=== PATIENT | female | born 1965 | race African-American/Black ===

== ENCOUNTER 2016-11-23 17:08 | Inpatient (IN) | payer OTHER ==
[2016-11-23 19:24] LABS: Hematocrit 37 % (35-47); Hemoglobin 11.9 g/dl (12.0-16.0); Mean Corpuscular HGB Conc 32 g/dl (31-36); Mean Corpuscular Hemoglobin 29 pg (27-31); Mean Corpuscular Volume 90 fL (80-97); Mean Platelet Volume 10 um3 (7.4-10.4); Red Cell Distribution Width 13 % (10.5-15); White Blood Count 13.9 10^3/ul (3.5-10.8)
[2016-11-23 19:37] LABS: Albumin 4.1 g/dL (3.2-5.2); BUN/Creatinine Ratio 15.5 (8-20); C Reactive Protein 135.75 mg/L (< 5.00); EGFR African American 43.6 (>60); EGFR Non-African American 33.9 (>60); Globulin 4.2 g/dL (2-4); Potassium 4.8 mmol/L (3.5-5.0); Total Protein 8.3 g/dL (6.4-8.9)
[2016-11-23] MEDS ORDERED: Clindamycin 600 MG IVPREMIX(* 600 MG/50 ML SDV IV ONE (22:31)
[2016-11-23 23:11] LABS: Erythrocyte Sed Rate 105 mm/Hr (0-30)
--- NOTE | 2016-11-23 23:31 | RAD ---
Indication: RIGHT lateral ankle pain following preceding recent injury. Fracture in 2010 with internal fixation hardware. Comparison: No relevant prior exams available on the [facility] for comparison. Technique: AP, mortise, and lateral views RIGHT ankle. Report: Severe soft tissue swelling most marked over the lateral malleolus and lateral hind through mid foot. No subcutaneous emphysema evident. Congruent ankle mortise and normal articular alignment throughout. Negative for component fracture or loosening of the lateral cortical plate and multiple fixation screws or lag screws at the medial malleolus. Negative for fracture, osteochondral lesion, periosteal reaction, osteolysis, or osteosclerosis. Suggestion of talocrural joint effusion. IMPRESSION: Negative for fracture, osteochondral lesion, or other acute bony abnormality. The constellation of findings is concerning for cellulitis and potential early septic arthritis. Correlate with clinical assessment.
--- NOTE | 2016-11-23 23:40 | ED ---
Lower Extremity - HPI Summary HPI Summary: Patient presents with four days of worsening right ankle pain, swelling and redness for unknown reasons. She has a history of left ankle ORIF for a bimalleolar fracture in 2010 in [place]. She did not roll the ankle or suffer any known bites or scratches. She denies fever, or chills, but does notice redness progressing up her coffey. She is able to bear weight, but at times it's painful but resolves. - History of Current Complaint Chief Complaint: EDExtremityLower Stated Complaint: RT ANKLE SWOLLEN Time Seen by Provider: 11/23/16 20:49 Hx Obtained From: Patient Mechanism Of Injury: Unknown Onset of Pain: Days - 4 Onset/Duration: Worse Since - 4 days ago Severity Initially: Mild Severity Currently: Moderate Pain Intensity: 5 Timing: Constant Location: Is Discrete @ - right ankle Character Of Pain: Dull, Aching, Stiffness Associated Signs And Symptoms: Positive: Swelling, Redness Aggravating Factor(s): Standing Alleviating Factor(s): Rest Able to Bear Weight: Yes - with intermittent pain - Allergies/Home Medications Allergies/Adverse Reactions: Allergies Allergy/AdvReac Type Severity Reaction Status Date / Time No Known Allergies Allergy Verified 11/23/16 20:10 Home Medications: Home Medications Atenolol TAB* [Tenormin TAB* 50 MG] 50 mg PO DAILY 11/23/16 [History Confirmed 11/23/16] Calcium 250 mg PO DAILY 11/23/16 [History Confirmed 11/23/16] Darunavir(NF) [Prezista(NF)] 1 tab PO DAILY 11/23/16 [History Confirmed 11/23/16 ] Genovoya 1 tab PO DAILY 11/23/16 [History Confirmed 11/23/16] Hydrochlorothiazide TAB* [Hydrodiuril TAB*] 1 tab PO DAILY 11/23/16 [History Confirmed 11/23/16] Levothyroxine TAB* [Synthroid 100 MCG TAB*] 1 tab PO DAILY 11/23/16 [History Confirmed 11/23/16] Lisinopril TAB* 10 mg PO DAILY 11/23/16 [History Confirmed 11/23/16] Lisinopril TAB* [Prinivil TAB 10 MG*] 1 tab PO DAILY 11/23/16 [History Confirmed 11/23/16] Omeprazole CAP* [Prilosec CAP* 20 MG] 20 mg PO DAILY 11/23/16 [History Confirmed 11/23/16] Pravastatin (NF) [Pravachol (NF)] 1 tab PO DAILY 11/23/16 [History Confirmed ] Vitamin D TAB* 2,000 i.u. PO DAILY 11/23/16 [History Confirmed 11/23/16] PMH/Surg Hx/FS Hx/Imm Hx Musculoskeletal History: Reports: Hx of Fracture(s) - right bimalleolar fracture with ORIF - Cancer History Hx Chemotherapy: No Hx Radiation Therapy: No Infectious Disease History: Yes Infectious Disease History: Denies: Traveled Outside the [place] in Last 30 Days - Family History Known Family History: Positive: None - Social History Occupation: Employed Full-time Lives: With Family Alcohol Use: None Substance Use Type: Reports: None Smoking Status (MU): Former Smoker Review of Systems Negative: Fever, Chills Positive: Myalgia, Decreased ROM, Edema Positive: Other - erythema Negative: Paresthesia, Numbness Psychological: Normal All Other Systems Reviewed And Are Negative: Yes Physical Exam Triage Information Reviewed: Yes Vital Signs On Initial Exam: Initial Vitals Temp Pulse Resp BP Pulse Ox 98.1 F 94 17 140/106 95 11/23/16 17:21 11/23/16 17:21 11/23/16 17:21 11/23/16 17:21 11/23/16 17:21 Vital Signs Reviewed: Yes Appearance: Positive: Well-Appearing, No Pain Distress, Obese Skin: Positive: Warm, Skin Color Reflects Adequate Perfusion, Dry, Soft, Erythema @ - right ankle erythema on anterior coffey to mid-coffey Head/Face: Positive: Normal Head/Face Inspection Eyes: Positive: EOMI, PHYLLIS, Conjunctiva Clear ENT: Positive: Hearing grossly normal Respiratory/Lung Sounds: Positive: Breath Sounds Present Cardiovascular: Positive: RRR Musculoskeletal: Positive: Limited @ - movement in all planes limited due to swelling and pain, Pain @ - TTP med/lat/ant ankle, Edema Right Neurological: Positive: Sensory/Motor Intact, Alert, Oriented to Person Place, Time, NV Bundle Intact Distally, Abnormal Gait Psychiatric: Positive: Affect/Mood Appropriate AVPU Assessment: Alert Diagnostics - Vital Signs Vital Signs Temp Pulse Resp BP Pulse Ox 11/23/16 20:10 98.5 F 84 16 123/66 98 11/23/16 17:21 98.1 F 94 17 140/106 95 - Laboratory Lab Results: Lab Results 11/23/16 11/23/16 Range/Units 18:01 18:01 WBC 13.9 H (3.5-10.8) 10^3/ul RBC 4.10 (4.0-5.4) 10^6/ul Hgb 11.9 L (12.0-16.0) g/dl Hct 37 (35-47) % MCV 90 (80-97) fL MCH 29 (27-31) pg MCHC 32 (31-36) g/dl RDW 13 (10.5-15) % Plt Count 324 (150-450) 10^3/ul MPV 10 (7.4-10.4) um3 Neut % (Auto) 67.4 (38-83) % Lymph % (Auto) 22.3 L (25-47) % Saunders % (Auto) 8.1 (1-9) % Eos % (Auto) 1.6 (0-6) % Baso % (Auto) 0.6 (0-2) % Absolute Neuts (auto) 9.4 H (1.5-7.7) 10^3/ul Absolute Lymphs (auto) 3.1 (1.0-4.8) 10^3/ul Absolute Monos (auto) 1.1 H (0-0.8) 10^3/ul Absolute Eos (auto) 0.2 (0-0.6) 10^3/ul Absolute Basos (auto) 0.1 (0-0.2) 10^3/ul Absolute Nucleated RBC 0.01 10^3/ul Nucleated RBC % 0 ESR 105 H (0-30) mm/Hr Sodium 137 (133-145) mmol/L Potassium 4.8 (3.5-5.0) mmol/L Chloride 100 L (101-111) mmol/L Carbon Dioxide 28 (22-32) mmol/L Anion Gap 9 (2-11) mmol/L BUN 25 H (6-24) mg/dL Creatinine 1.61 H (0.51-0.95) mg/dL Est GFR ( Amer) 43.6 (>60) Est GFR (Non-Af Amer) 33.9 (>60) BUN/Creatinine Ratio 15.5 (8-20) Glucose 121 H (70-100) mg/dL Calcium 10.0 (8.6-10.3) mg/dL Total Bilirubin 1.00 (0.2-1.0) mg/dL AST 21 (13-39) U/L ALT 27 (7-52) U/L Alkaline Phosphatase 71 (34-104) U/L C-Reactive Protein 135.75 H (< 5.00) mg/L Total Protein 8.3 (6.4-8.9) g/dL Albumin 4.1 (3.2-5.2) g/dL Globulin 4.2 H (2-4) g/dL Albumin/Globulin Ratio 1.0 (1-3) Result Diagrams: 11/23/16 18:01 11/23/16 18:01 Lab Statement: Any lab studies that have been ordered have been reviewed, and results considered in the medical decision making process. - Radiology No standard instances Xray Interpretation: No Acute Changes Radiology Interpretation Completed By: Radiologist - Ultrasound No standard instances Ultrasound Interpretation: No Acute Changes Ultrasound Interpretation Completed By: Radiologist Lower Extremity Course/Dx - Course Course Of Treatment: Patient's inflammatory markers are quite elevated, therefore she will be admitted for IV antibiotics and orthopedic consultation in the AM. - Diagnoses Differential Diagnosis/HQI/PQRI: Positive: Arthritis, Bursitis, Cellulitis, Contusion, Dislocation, Fracture (Closed), Infection, Septic Arthritis, Sprain, Strain Provider Diagnoses: Cellulitis of right ankle - Physician Notifications Discussed Care Of Patient With: Dr. Goodrich, ortho surgery; Dr. Pittman, hospital medicine Instructed by Provider To: Admit As Inpatient Discharge - Discharge Plan Condition: Stable Disposition: ADMITTED TO [facility]
--- NOTE | 2016-11-24 06:02 | HP ---
CC: Dr. Freire * HISTORY AND PHYSICAL: DATE OF ADMISSION: 11/23/16 CHIEF COMPLAINT: Right foot and ankle swelling. HISTORY OF PRESENT ILLNESS: The patient is a 51-year-old woman who states she woke up Monday and said her ankle was swollen and red. She had broken it in 2010 and thought it might be related to that. At one point, she thought it might just be a pinch nerve. She kept it elevated and iced it to see if it would get better, but it did not. She denied any fevers or chills. It is not very painful. She is able to walk on it. Because it did not get better she came to the ER for further evaluation. In the ER, the patient was evaluated and her ankle was red and swollen. It was tender to the touch and she had a sed rate of over 100 as well as a CRP a little over 100. She is being admitted for cellulitis and possible septic arthritis. PAST MEDICAL HISTORY: Significant for hypertension, hypothyroidism, hyperlipidemia, GERD, and HIV. CURRENT MEDICATIONS: Are as follows: 1. Lisinopril 10 mg daily. 2. Hydrochlorothiazide 25 mg daily. 3. Synthroid 100 mcg daily. 4. Atenolol 50 mg daily. 5. Omeprazole 20 mg daily. 6. Pravastatin 20 mg daily. 7. Calcium 250 mg daily. 8. Genvoya 1 tablet daily. 9. Prezista 1 tablet daily. ALLERGIES: She has no known drug allergies. FAMILY HISTORY: She is adopted. SOCIAL HISTORY: Quit tobacco 29 years ago. Rare alcohol. No recreational drug use. She is on disability. She is . She has 3 children. Her son Bruno Sena is her healthcare proxy. REVIEW OF SYSTEMS: A 14-point review of systems is completed with the patient. All pertinent positives and negatives are in the history of present illness, otherwise it is negative. PHYSICAL EXAMINATION GENERAL: A pleasant woman lying in bed, in no acute distress. VITAL SIGNS: Blood pressure 101/56, pulse ox 93%, heart rate 78 beats per minute, respiratory rate 16 breaths per minute, temperature 98.5 degrees. HEENT: Normocephalic and atraumatic. Pupils are equal, round and reactive to light. Moist mucous membranes. NECK: Supple. No JVD, bruits, palpable thyroid or lymphadenopathy. CHEST: Clear to auscultation and percussion bilaterally. CARDIOVASCULAR: S1, S2 appreciated. Regular rate and rhythm. ABDOMEN: Positive bowel sounds in all 4 quadrants. Soft, nontender, and nondistended. EXTREMITIES: No cyanosis or clubbing. Her right ankle is erythematous, warm, and tender to the touch on the medial malleolus. NEUROLOGIC: She is alert and oriented x3. Moves all extremities. SKIN: No rashes or abnormalities except noted on her right ankle. LABORATORY DATA: White count 13.9, hemoglobin 11.9, hematocrit 37, platelets 324. Sodium is 137, potassium 4.8, chloride 100, CO2 28, BUN 25, creatinine 1.61 , glucose 121, CRP 135.75. ESR is 105. Ankle x-ray negative for fracture or osteochondral lesion or other bony abnormality. This constellation of findings is concerning for cellulitis and potential early septic arthritis, correlate with medical assessment. Ankle ultrasound is pending. ASSESSMENT AND PLAN: 1. Cellulitis versus septic arthritis. I am truly concerned this patient has septic arthritis. She says it does not hurt, but the ankle is exquisitely tender when I palpated. It is red and it is warm. Her sed rate is over 100 as is her CRP. She does have an underlying immunodeficiency, although she says her viral load is undetectable. I will put her on Ancef 1 g IV q.8. Ortho will see her in the morning and hopefully tap the knee. May benefit from ID consult, if this does not improve. 2. HIV. Stable. Continue current regimen of medications. 3. Hypertension. Well controlled. Continue current medications. 4. FEN: Regular diet. 5. DVT prophylaxis: Heparin subcu. 6. The patient is a full code. TIME SPENT: Over 75 minutes was spent on this H and P; more than 40 minutes of which is spent direct [id number] contact with the patient in evaluation, physical exam, counseling, and coordination of care. [id number]/[facility] #: [id number] [facility]
[2016-11-24] MEDS: Levothyroxine TAB* 100 MCG TAB PO SCH (06:07)
[2016-11-24] MEDS: ceFAZolin VIAL(*) 1 GM in NS 0.9% 50 ML* 50 ML IVPB SCH ×2 (06:18→14:19)
[2016-11-24] MEDS: Heparin VIAL(*) 5000 UNITS/ML VIAL (FIVE THOUSAND) SUBCUT SCH ×3 (06:18→21:57)
[2016-11-24] MEDS ORDERED: Acetaminophen TAB* 325 MG PO PRN (08:05)
[2016-11-24] MEDS ORDERED: [UNRECOGNIZED DRUG - OTHER] PO SCH (09:00)
[2016-11-24] MEDS ORDERED: DARUNAVIR 800 MG PO SCH (09:00)
[2016-11-24] MEDS: Cholecalciferol TAB* 1000 UNITS PO SCH (09:07)
[2016-11-24] MEDS: Omeprazole CAP* 20 MG PO SCH (09:07)
[2016-11-24] MEDS: CMCS:Pravastatin (NF) 20 MG TAB PO SCH (09:07)
[2016-11-24] MEDS: Lisinopril TAB* 10 MG PO SCH (09:07)
[2016-11-24] MEDS: Atenolol TAB* 50 MG PO SCH (09:08)
[2016-11-24] MEDS: Hydrochlorothiazide TAB* 25 MG PO SCH (09:08)
[2016-11-24] MEDS: oxyCODONE/Acetamin 5/325 MG* TAB PO PRN ×2 (09:08→14:18)
--- NOTE | 2016-11-24 09:21 | CONS ---
ORTHOPEDIC CONSULT: DATE OF CONSULT: 11/24/16 ATTENDING SURGEON: Jackie Goodrich MD CHIEF COMPLAINT: Right ankle pain. HISTORY OF PRESENT ILLNESS: Ms. Vital is a 51-year-old female, who reports 5 days of right ankle p ain and swelling. She had a fracture in 2010 fixed with surgery. She has chronic sciatic symptoms i nvolving the left leg. The patient reports she elevated and iced. She does have a flea bite on kike t foot. The patient reports she did have some increasing pain and redness, so she came to the emerg ency room. She was able to ambulate on that foot. Her pain was 4/10. Upon presentation to the emergency room, the patient was noted to have leukocytosis with elevated ES R and CRP. She was admitted for cellulitis. I am consulted by medicine team to exclude septic arth ritis or osteomyelitis. PAST MEDICAL HISTORY: Hypertension, hypothyroidism, HIV, GERD, hyperlipidemia. PAST SURGICAL HISTORY: ORIF of the right ankle fracture in 2010 in outside facility. CURRENT MEDICATIONS: 1. Lisinopril 10 mg p.o. daily. 2. Hydrochlorothiazide 25 mg p.o. daily. 3. Synthroid 100 mcg p.o. daily. 4. Atenolol 50 mg p.o. daily. 5. Omeprazole 20 mg p.o. daily. 6. Pravastatin 20 mg p.o. daily. 7. Calcium 250 mg p.o. daily. 8. Genvoya 1 tablet p.o. daily. 9. Prezista 1 tablet p.o. daily. ALLERGIES: No known drug allergies. No known latex allergy. FAMILY HISTORY: Unknown. She is adopted. SOCIAL HISTORY: The patient lives with her son. Quit tobacco a long time ago. Rare alcohol use. N o recreational drug use. She is on disability. Normally an independent ambulator. REVIEW OF SYSTEMS: Fourteen systems were reviewed with the patient today; positive for right foot a nd ankle swelling. Positive for right foot, ankle, and lower leg erythema. Negative for fevers, ch ills, chest pain, shortness of breath, nausea, vomiting, headache, or dizziness. Otherwise, the pat ient reports review of systems is negative or not relevant. PHYSICAL EXAMINATION: Current vitals: Temperature 98.5, pulse 83, blood pressure 115/69. General: The patient is an obese female, in no apparent distress. Alert and oriented x3. Pleasant mood an d appropriate affect. Gait is not assessed. Chest: Unlabored breathing. HEENT: Atraumatic, normo cephalic. Pupils equal and reactive to light. Right lower extremity, the patient has a small super ficial open wound, which is a flea bite on the dorsal foot. She has some mild erythema of the entir e foot, ankle, up to mid calf. This is warm. She has swelling diffusely around the ankle and foot. She is able to dorsiflex and plantarflex, but is weak due to pain. EHL and FHL are intact. Full sensation to light touch in all nerve distributions and 2+ palpable DP pulse. DIAGNOSTIC STUDIES/LAB DATA: Laboratory values from 11/23/16 show a white blood cells 13.9 with no left shift, hematocrit 37, platelets 324. ESR 105. CRP 136. Sodium 137, potassium 4.8, chloride 10 0, BUN and creatinine 25 and 1.61. Alk phos 71. Radiographs: Plain films of the patient's ankle show medial malleolar screws as well as plate and s crews on the lateral malleolus. Lateral view indicates possible effusion at the ankle joint. There is healed fracture with no significant lytic lesions around the bone. Ultrasound is pending report. ASSESSMENT AND PLAN: Ms. Vital is a 51-year-old female with 5 days of right foot and ankle pain, s welling, and erythema. She certainly has cellulitis and this is likely from a flea bite. She has b een placed on IV antibiotics, clindamycin, and Ancef per hospitalist group. She has leukocytosis an d elevated CRP, ESR. Of course, we will have to exclude a septic ankle joint or osteomyelitis due t o the prior hardware. I will request an MRI of this right ankle. If the patient continues to have severe pain at the ankle joint, we can consider an aspiration as well today. For now, I would allow the patient to weight bear as tolerated. I would have her out of bed with bathroom privileges. Co ntinue the IV antibiotics and follow this patient. Today, the patient and I briefly discussed that if we aspirate the ankle joint and grew bacteria, she would need washout of the ankle joint with rem oval of hardware. She understands this. Thank you for this orthopedic consultation. [id number]/[facility] #: [id number]
--- NOTE | 2016-11-24 11:20 | RAD ---
Indication: Right ankle swelling, joint effusion. Real-time sonography of the right ankle was performed. There is no evidence of joint effusion or drainable fluid collections. Subcutaneous edema is noted. IMPRESSION: No evidence of drainable fluid collection or joint effusion. Subcutaneous edema is identified.
--- NOTE | 2016-11-24 12:45 | RAD ---
INDICATION: Swelling evaluate for osteomyelitis. COMPARISON: Comparison is made with a prior x-ray study of the right ankle from November 23, 2016. TECHNIQUE: Axial, sagittal and coronal T1 and T2-weighted images of the right ankle were obtained. FINDINGS: The patient is status post operative reduction and internal fixation of fractures of the distal tibia and fibula. There is a metallic plate and multiple surgical screws in the distal fibula and surgical screws in the distal tibia which causes metallic artifact limiting the study. There is soft tissue swelling and fluid tracking within the subcutaneous tissues which is most prominent along the anterolateral aspect of the ankle. No discrete fluid collection or abscess is seen. The bones are in normal alignment and within normal limits in signal intensity without gross evidence for osteomyelitis. There is an effusion within the tibiotalar joint. The tendons appear to be within normal limits in shape and signal intensity. The plantar fascia appears to be within normal limits. IMPRESSION: 1. SOFT TISSUE SWELLING. 2. THERE IS AN EFFUSION WITHIN THE TIBIOTALAR JOINT AND THEREFORE A SEPTIC ARTHRITIS CANNOT BE EXCLUDED. 3. LIMITED STUDY, POSTSURGICAL CHANGES WITHOUT GROSS EVIDENCE FOR OSTEOMYELITIS.
--- NOTE | 2016-11-24 16:53 | PN ---
Subjective Date of Service: 11/24/16 Interval History: Pain continues in right ankle someone is bringing in her antiretrovirals she feels pain is no better denies any recent trauma to ankle Objective Active Medications: Acetaminophen (Tylenol Tab*) 650 mg PO Q4H PRN PRN Reason: FEVER/PAIN Last Admin: 11/24/16 16:19 Dose: 650 mg Atenolol (Tenormin Tab*) 50 mg PO DAILY [facility] Last Admin: 11/24/16 09:08 Dose: 50 mg Cholecalciferol (Vitamin D Tab*) 2,000 units PO DAILY [facility] Last Admin: 11/24/16 09:07 Dose: 2,000 units Darunavir (Prezista(Nf)) 800 mg PO DAILY [facility] Last Admin: 11/24/16 09:10 Dose: Not Given Heparin Sodium (Porcine) (Heparin Vial(*)) 5,000 units SUBCUT Q8HR [facility] Last Admin: 11/24/16 14:19 Dose: 5,000 units Hydrochlorothiazide (Hydrodiuril Tab*) 25 mg PO DAILY [facility] Last Admin: 11/24/16 09:08 Dose: 25 mg Ceftriaxone Sodium 1,000 mg/ (Sodium Chloride) 50 mls @ 200 mls/hr IVPB Q24H DANA Vancomycin HCl 1,250 mg/ (Sodium Chloride) 250 mls @ 166.667 mls/hr IVPB ONCE [facility] PRN Reason: Protocol Stop: 11/24/16 23:59 Levothyroxine Sodium (Synthroid Tab*) 100 mcg PO DAILY@0600 [facility] Last Admin: 11/24/16 06:07 Dose: 100 mcg Lisinopril (Prinivil Tab*) 10 mg PO DAILY [facility] Last Admin: 11/24/16 09:07 Dose: 10 mg Non-Formulary Medication (Genovoya) 1 tab PO DAILY [facility] Last Admin: 11/24/16 09:10 Dose: Not Given Omeprazole (Prilosec Cap*) 20 mg PO DAILY@0730 [facility] Last Admin: 11/24/16 09:07 Dose: 20 mg Oxycodone/Acetaminophen (Percocet 5/325 Tab*) 1 tab PO Q4H PRN PRN Reason: PAIN Last Admin: 11/24/16 14:18 Dose: 1 tab Pravastatin Sodium (Pravachol (Nf)) 20 mg PO DAILY [facility] PRN Reason: Protocol Last Admin: 11/24/16 09:07 Dose: 20 mg Vital Signs 11/24/16 11/24/16 11:08 14:18 Respiratory 16 16 Rate Oxygen Devices in Use Now: None Appearance: obese, NAD Eyes: No Scleral Icterus, PERRLA Ears/Nose/Mouth/Throat: NL Teeth, Lips, Gums, Clear Oropharnyx, Mucous Membranes Moist Neck: NL Appearance and Movements; NL JVP, Trachea Midline Respiratory: Symmetrical Chest Expansion and Respiratory Effort, Clear to Auscultation Cardiovascular: NL Sounds; No Murmurs; No JVD, RRR Abdominal: NL Sounds; No Tenderness; No Distention, No Hepatosplenomegaly Lymphatic: No Cervical Adenopathy Extremities: No Edema, No Clubbing, Cyanosis, - - right ankle swollen, red, TTP , pain with passive ROM in all directions Skin: - - erythema over right ankle extending up leg over pretibial area Neurological: Alert and Oriented x 3 Result Diagrams: 11/23/16 18:01 11/23/16 18:01 Additional Lab and Data: Lab Results 11/23/16 11/23/16 Range/Units 18:01 18:01 WBC 13.9 H (3.5-10.8) 10^3/ul RBC 4.10 (4.0-5.4) 10^6/ul Hgb 11.9 L (12.0-16.0) g/dl Hct 37 (35-47) % MCV 90 (80-97) fL MCH 29 (27-31) pg MCHC 32 (31-36) g/dl RDW 13 (10.5-15) % Plt Count 324 (150-450) 10^3/ul MPV 10 (7.4-10.4) um3 Neut % (Auto) 67.4 (38-83) % Lymph % (Auto) 22.3 L (25-47) % Edwards % (Auto) 8.1 (1-9) % Eos % (Auto) 1.6 (0-6) % Baso % (Auto) 0.6 (0-2) % Absolute Neuts (auto) 9.4 H (1.5-7.7) 10^3/ul Absolute Lymphs (auto) 3.1 (1.0-4.8) 10^3/ul Absolute Monos (auto) 1.1 H (0-0.8) 10^3/ul Absolute Eos (auto) 0.2 (0-0.6) 10^3/ul Absolute Basos (auto) 0.1 (0-0.2) 10^3/ul Absolute Nucleated RBC 0.01 10^3/ul Nucleated RBC % 0 ESR 105 H (0-30) mm/Hr Sodium 137 (133-145) mmol/L Potassium 4.8 (3.5-5.0) mmol/L Chloride 100 L (101-111) mmol/L Carbon Dioxide 28 (22-32) mmol/L Anion Gap 9 (2-11) mmol/L BUN 25 H (6-24) mg/dL Creatinine 1.61 H (0.51-0.95) mg/dL Est GFR ( Amer) 43.6 (>60) Est GFR (Non-Af Amer) 33.9 (>60) BUN/Creatinine Ratio 15.5 (8-20) Glucose 121 H (70-100) mg/dL Calcium 10.0 (8.6-10.3) mg/dL Total Bilirubin 1.00 (0.2-1.0) mg/dL AST 21 (13-39) U/L ALT 27 (7-52) U/L Alkaline Phosphatase 71 (34-104) U/L C-Reactive Protein 135.75 H (< 5.00) mg/L Total Protein 8.3 (6.4-8.9) g/dL Albumin 4.1 (3.2-5.2) g/dL Globulin 4.2 H (2-4) g/dL Albumin/Globulin Ratio 1.0 (1-3) Assess/Plan/Problems-Billing Assessment: 51 yo F h/o HTN, hypothyroidism, HLD, HIV p/w erythema over and swelling of right ankle concerning for cellulitis with underlying septic arthritis - Patient Problems (1) Septic arthritis Comment: right ankle fluid removed today by Dr. Goodrich. Noted to be clear. Cultures and gram stain pending start vanco and CTX until results return (2) Cellulitis Comment: CTX and vanco as abve (3) Hypertension Comment: atenolol, HCTZ, lisinopril (4) HIV (human immunodeficiency virus infection) Comment: home medications being brought in check CD4 and VL (5) DVT prophylaxis Comment: HSQ
[2016-11-24] MEDS ORDERED: Vancomycin per Pharmacy* NOTE FOLLOW UP PRN (17:21)
[2016-11-24] MEDS ORDERED: Vancomycin(*) 1,250 MG in NS 0.9% 250 ML* 250 ML IVPB ONE (18:15)
[2016-11-24] MEDS: cefTRIAXone VIAL(*) 1,000 MG in NS 0.9% 50 ML* 50 ML IVPB SCH (18:31)
[2016-11-24] MEDS ORDERED: Vancomycin(*) 2,000 MG in NS 0.9% 500 ML BAG* 500 ML IVPB ONE (19:30)
[2016-11-24] MEDS: DARUNAVIR 800 MG PO SCH (22:07)
[2016-11-24] MEDS: GENVOYA PO SCH (22:07)
--- NOTE | 2016-11-25 01:28 | OP ---
BLANKS DUE TO UNINTELLIGIBLE VOICE RECORDING DATE OF OPERATION: 11/24/16 - ROOM #412 DATE OF : 67 SURGEON: Jackie Goodrich MD PRE-OP DIAGNOSIS: Right ankle pain with effusion POST-OP DIAGNOSIS: Right ankle pain with effusion. OPERATIVE PROCEDURE: Right ankle aspiration at the bedside. INDICATIONS: Ms. Vital is a 51-year-old immunosuppressed patient with HIV, who has 5 days of increased right ankle pain and swelling and erythema. She does have history of ORIF on this ankle. She does have retained hardware. The patient did have a flea bite along the dorsal foot but no other injury or open wound. She was admitted to [facility] with leukocytosis and significantly elevated ESR, CRP. She was placed on IV antibiotics for cellulitis. MRI was ordered after plain films showed no obvious bone changes. No osteomyelitis was noted. Ankle effusion was noted, therefore aspiration was offered to the patient and she accepted. Informed consent was obtained from the patient. She understood the risks of the procedure included but were not limited to bleeding, infection, damage to nearby structures, failure to obtain fluid. She agreed to proceed. Procedure time-out was performed with PA and 2 nurse witnesses. The patient consented, signed the consent form, and this was placed in the chart. ESTIMATED BLOOD LOSS: Less than 5 cc. SPECIMEN: 4 cc of serosanguineous joint fluid was aspirated from the right ankle joint and sent to Microbiology for aerobic, anaerobic, fungal, and microbacterial culture. COMPLICATIONS: None. DESCRIPTION OF PROCEDURE: Ms. Vital's anterolateral ankle was prepped with povidone-iodine and alcohol swabs. An 18-gauge needle was used to aspirate 4 cc of serosanguineous joint fluid. This did not appear to be purulent. This area was cleaned and dressed with a Band-Aid. The patient tolerated the procedure well and had no complications. Specimen will be sent for gram stain, aerobic, anaerobic, fungal, and microbacterial culture. There is likely not enough fluid for a cell count. The patient understands that if her erythema/swelling get worse or cultures show bacterial growth, we will consider a formal open washout of her right ankle joint with removal of hardware. [id number]/[facility] #: [id number] [facility]
[2016-11-25 05:38] LABS: Hematocrit 32 % (35-47); Hemoglobin 10.7 g/dl (12.0-16.0); Mean Corpuscular HGB Conc 33 g/dl (31-36); Mean Corpuscular Hemoglobin 30 pg (27-31); Mean Corpuscular Volume 90 fL (80-97); Mean Platelet Volume 10 um3 (7.4-10.4); Red Blood Count 3.58 10^6/ul (4.0-5.4); Red Cell Distribution Width 13 % (10.5-15); White Blood Count 9.4 10^3/ul (3.5-10.8)
[2016-11-25] MEDS: Levothyroxine TAB* 100 MCG TAB PO SCH (05:47)
[2016-11-25] MEDS: Heparin VIAL(*) 5000 UNITS/ML VIAL (FIVE THOUSAND) SUBCUT SCH ×3 (05:53→21:37)
[2016-11-25 06:03] LABS: BUN/Creatinine Ratio 21.3 (8-20); C Reactive Protein 117.96 mg/L (< 5.00); Calcium 8.9 mg/dL (8.6-10.3); EGFR African American 41.2 (>60); Potassium 4.1 mmol/L (3.5-5.0)
--- NOTE | 2016-11-25 07:28 | PN ---
Progress Note - Progress Note SOAP: Subjective: Pt. is alert, reports she is able to walk. She feels she is improving. Objective: RLE - erythema and swelling improved. no warmth, 2+dp pulse. distally nvi. Vital Signs: Temp Pulse Resp BP Pulse Ox 98.3 F 81 16 109/72 94 11/25/16 04:11 11/25/16 04:11 11/25/16 04:11 11/25/16 04:11 11/25/16 04:11 Laboratory Results - last 24 hr 11/25/16 11/25/16 05:05 05:05 WBC 9.4 RBC 3.58 L Hgb 10.7 L Hct 32 L MCV 90 MCH 30 MCHC 33 RDW 13 Plt Count 268 MPV 10 Neut % (Auto) 68.6 Lymph % (Auto) 19.7 L [place] % (Auto) 8.1 Eos % (Auto) 2.9 Baso % (Auto) 0.7 Absolute Neuts (auto) 6.5 Absolute Lymphs (auto) 1.9 Absolute Monos (auto) 0.8 Absolute Eos (auto) 0.3 Absolute Basos (auto) 0.1 Absolute Nucleated RBC 0 Nucleated RBC % 0 Sodium 135 Potassium 4.1 Chloride 103 Carbon Dioxide 24 Anion Gap 8 BUN 36 H Creatinine 1.69 H Est GFR ( Amer) 41.2 Est GFR (Non-Af Amer) 32.0 BUN/Creatinine Ratio 21.3 H Glucose 141 H Calcium 8.9 C-Reactive Protein 117.96 H Assessment: 51 yo F with R ankle pain/cellulitis Plan: R ankle aspirate pending c and S wbc improved today physical exam improving on IV abx cont. to mobilize plan to follow C and S
[2016-11-25] MEDS: DARUNAVIR 800 MG PO SCH (08:47)
[2016-11-25] MEDS: CMCS:Pravastatin (NF) 20 MG TAB PO SCH (08:47)
[2016-11-25] MEDS: Lisinopril TAB* 10 MG PO SCH (08:47)
[2016-11-25] MEDS: Cholecalciferol TAB* 1000 UNITS PO SCH (08:47)
[2016-11-25] MEDS: Omeprazole CAP* 20 MG PO SCH (08:47)
[2016-11-25] MEDS: GENVOYA PO SCH (08:48)
[2016-11-25] MEDS: Hydrochlorothiazide TAB* 25 MG PO SCH (08:49)
[2016-11-25] MEDS: Atenolol TAB* 50 MG PO SCH (08:49)
[2016-11-25] MEDS: oxyCODONE/Acetamin 5/325 MG* TAB PO PRN ×2 (08:52→16:28)
--- NOTE | 2016-11-25 17:20 | PN ---
Subjective Date of Service: 11/25/16 Interval History: Pain in right ankle present but greatly improved Feels swelling is decreased No other complaints Objective Active Medications: Acetaminophen (Tylenol Tab*) 650 mg PO Q4H PRN PRN Reason: FEVER/PAIN Last Admin: 11/24/16 16:19 Dose: 650 mg Atenolol (Tenormin Tab*) 50 mg PO DAILY [facility] Last Admin: 11/25/16 08:49 Dose: 50 mg Cholecalciferol (Vitamin D Tab*) 2,000 units PO DAILY [facility] Last Admin: 11/25/16 08:47 Dose: 2,000 units Darunavir (Prezista(Nf)) 800 mg PO DAILY [facility] Last Admin: 11/25/16 08:47 Dose: 800 mg Heparin Sodium (Porcine) (Heparin Vial(*)) 5,000 units SUBCUT Q8HR [facility] Last Admin: 11/25/16 14:47 Dose: 5,000 units Hydrochlorothiazide (Hydrodiuril Tab*) 25 mg PO DAILY [facility] Last Admin: 11/25/16 08:49 Dose: 25 mg Ceftriaxone Sodium 1,000 mg/ (Sodium Chloride) 50 mls @ 200 mls/hr IVPB Q24H [facility] Last Admin: 11/24/16 18:31 Dose: 200 mls/hr Levothyroxine Sodium (Synthroid Tab*) 100 mcg PO DAILY@0600 [facility] Last Admin: 11/25/16 05:47 Dose: 100 mcg Lisinopril (Prinivil Tab*) 10 mg PO DAILY [facility] Last Admin: 11/25/16 08:47 Dose: 10 mg Pto: (Genvoya 1 Tab) 1 tab PO DAILY [facility] Last Admin: 11/25/16 08:48 Dose: 1 tab Omeprazole (Prilosec Cap*) 20 mg PO DAILY@0730 [facility] Last Admin: 11/25/16 08:47 Dose: 20 mg Oxycodone/Acetaminophen (Percocet 5/325 Tab*) 1 tab PO Q4H PRN PRN Reason: PAIN Last Admin: 11/25/16 16:28 Dose: 1 tab Pravastatin Sodium (Pravachol (Nf)) 20 mg PO DAILY [facility] PRN Reason: Protocol Last Admin: 11/25/16 08:47 Dose: 20 mg Vital Signs 11/24/16 11/24/16 11/24/16 18:18 19:21 20:00 Temperature 98.5 F Pulse Rate 73 Respiratory 16 20 20 Rate Blood Pressure 93/57 (mmHg) O2 Sat by Pulse 96 Oximetry 11/24/16 11/25/16 11/25/16 23:34 04:11 07:29 Temperature 98.2 F 98.3 F 98.4 F Pulse Rate 77 81 84 Respiratory 16 16 16 Rate Blood Pressure 112/66 109/72 114/40 (mmHg) O2 Sat by Pulse 95 94 96 Oximetry 11/25/16 11/25/16 11/25/16 08:00 08:52 10:52 Temperature Pulse Rate Respiratory 16 18 18 Rate Blood Pressure (mmHg) O2 Sat by Pulse Oximetry 11/25/16 16:28 Temperature Pulse Rate Respiratory 18 Rate Blood Pressure (mmHg) O2 Sat by Pulse Oximetry Oxygen Devices in Use Now: None Appearance: NAD Eyes: No Scleral Icterus, PERRLA Ears/Nose/Mouth/Throat: NL Teeth, Lips, Gums, Clear Oropharnyx Neck: NL Appearance and Movements; NL JVP, Trachea Midline Respiratory: Symmetrical Chest Expansion and Respiratory Effort, Clear to Auscultation Cardiovascular: NL Sounds; No Murmurs; No JVD, RRR Abdominal: NL Sounds; No Tenderness; No Distention, No Hepatosplenomegaly Lymphatic: No Cervical Adenopathy Extremities: - - right ankle with minimal to mod swelling, minimall erythema with tracking up anterior leg Neurological: Alert and Oriented x 3 Result Diagrams: 11/25/16 05:05 11/25/16 05:05 Additional Lab and Data: Lab Results 11/23/16 11/23/16 Range/Units 18:01 18:01 WBC 13.9 H (3.5-10.8) 10^3/ul RBC 4.10 (4.0-5.4) 10^6/ul Hgb 11.9 L (12.0-16.0) g/dl Hct 37 (35-47) % MCV 90 (80-97) fL MCH 29 (27-31) pg MCHC 32 (31-36) g/dl RDW 13 (10.5-15) % Plt Count 324 (150-450) 10^3/ul MPV 10 (7.4-10.4) um3 Neut % (Auto) 67.4 (38-83) % Lymph % (Auto) 22.3 L (25-47) % [place] % (Auto) 8.1 (1-9) % Eos % (Auto) 1.6 (0-6) % Baso % (Auto) 0.6 (0-2) % Absolute Neuts (auto) 9.4 H (1.5-7.7) 10^3/ul Absolute Lymphs (auto) 3.1 (1.0-4.8) 10^3/ul Absolute Monos (auto) 1.1 H (0-0.8) 10^3/ul Absolute Eos (auto) 0.2 (0-0.6) 10^3/ul Absolute Basos (auto) 0.1 (0-0.2) 10^3/ul Absolute Nucleated RBC 0.01 10^3/ul Nucleated RBC % 0 ESR 105 H (0-30) mm/Hr Sodium 137 (133-145) mmol/L Potassium 4.8 (3.5-5.0) mmol/L Chloride 100 L (101-111) mmol/L Carbon Dioxide 28 (22-32) mmol/L Anion Gap 9 (2-11) mmol/L BUN 25 H (6-24) mg/dL Creatinine 1.61 H (0.51-0.95) mg/dL Est GFR ( Amer) 43.6 (>60) Est GFR (Non-Af Amer) 33.9 (>60) BUN/Creatinine Ratio 15.5 (8-20) Glucose 121 H (70-100) mg/dL Calcium 10.0 (8.6-10.3) mg/dL Total Bilirubin 1.00 (0.2-1.0) mg/dL AST 21 (13-39) U/L ALT 27 (7-52) U/L Alkaline Phosphatase 71 (34-104) U/L C-Reactive Protein 135.75 H (< 5.00) mg/L Total Protein 8.3 (6.4-8.9) g/dL Albumin 4.1 (3.2-5.2) g/dL Globulin 4.2 H (2-4) g/dL Albumin/Globulin Ratio 1.0 (1-3) Microbiology and Other Data: Microbiology 11/24/16 16:00 Gram Stain - Final Joint Fluid(Synovial) - Ankle Right Body Fluid Culture - Preliminary No Growth Day 1 Skin and Soft Tissue MRSA/MSSA (PCR - Final Mrsa Negative S.aureus Negative 11/24/16 16:00 Anaerobic Culture - Preliminary Body Fluid - Ankle Right No Growth Day 1 Acid Fast Bacilli Smear - Final Assess/Plan/Problems-Billing Assessment: 51 yo F h/o HTN, hypothyroidism, HLD, HIV p/w erythema over and swelling of right ankle concerning for cellulitis with underlying septic arthritis - Patient Problems (1) Septic arthritis Comment: right ankle s/p arthrocentesis Cultures and gram stain negative c/w CTX until negative x 48 hrs (2) Cellulitis Comment: CTX (3) Hypertension Comment: atenolol, HCTZ, lisinopril (4) HIV (human immunodeficiency virus infection) Comment: home medications brought in check CD4 and VL (5) DVT prophylaxis Comment: HSQ
[2016-11-25] MEDS: cefTRIAXone VIAL(*) 1,000 MG in NS 0.9% 50 ML* 50 ML IVPB SCH (17:46)
[2016-11-26] MEDS: oxyCODONE/Acetamin 5/325 MG* TAB PO PRN ×2 (01:12→18:30)
[2016-11-26] MEDS: Levothyroxine TAB* 100 MCG TAB PO SCH (06:01)
[2016-11-26] MEDS: Heparin VIAL(*) 5000 UNITS/ML VIAL (FIVE THOUSAND) SUBCUT SCH ×3 (06:02→21:25)
[2016-11-26] MEDS: Omeprazole CAP* 20 MG PO SCH (06:02)
--- NOTE | 2016-11-26 09:06 | PN ---
Progress Note - Progress Note SOAP: Subjective: Pt. reports swelling and continued pain in R ankle. Objective: RLE - erythema completely resolve. swelling unchanged, motion df/pf improved, nvi. Vital Signs: Temp Pulse Resp BP Pulse Ox 99.1 F 82 16 129/58 96 11/25/16 23:56 11/25/16 23:56 11/26/16 03:12 11/25/16 23:56 11/25/16 23:56 Assessment: 51 yo immunosuppressed +HIV with resolving R ankle/foot cellulitis Plan: C and S negative to date. Ortho will follow these cultures wbat rle Recommend switch to PO antibiotics and d/c to home follow up with Dr. Goodrich in 7 days for recheck, call [phone] for appointment
[2016-11-26] MEDS: CMCS:Pravastatin (NF) 20 MG TAB PO SCH (09:10)
[2016-11-26] MEDS: Hydrochlorothiazide TAB* 25 MG PO SCH (09:10)
[2016-11-26] MEDS: Cholecalciferol TAB* 1000 UNITS PO SCH (09:10)
[2016-11-26] MEDS: Lisinopril TAB* 10 MG PO SCH (09:11)
[2016-11-26] MEDS: DARUNAVIR 800 MG PO SCH (09:11)
[2016-11-26] MEDS: GENVOYA PO SCH (09:11)
[2016-11-26] MEDS: Atenolol TAB* 50 MG PO SCH (09:15)
--- NOTE | 2016-11-26 16:50 | PN ---
Subjective Date of Service: 11/26/16 Interval History: Swelling decreased and pain decreased although remains significant Objective Active Medications: Acetaminophen (Tylenol Tab*) 650 mg PO Q4H PRN PRN Reason: FEVER/PAIN Last Admin: 11/24/16 16:19 Dose: 650 mg Atenolol (Tenormin Tab*) 50 mg PO DAILY [facility] Last Admin: 11/26/16 09:15 Dose: 50 mg Cholecalciferol (Vitamin D Tab*) 2,000 units PO DAILY [facility] Last Admin: 11/26/16 09:10 Dose: 2,000 units Darunavir (Prezista(Nf)) 800 mg PO DAILY [facility] Last Admin: 11/26/16 09:11 Dose: 800 mg Heparin Sodium (Porcine) (Heparin Vial(*)) 5,000 units SUBCUT Q8HR [facility] Last Admin: 11/26/16 15:48 Dose: 5,000 units Hydrochlorothiazide (Hydrodiuril Tab*) 25 mg PO DAILY [facility] Last Admin: 11/26/16 09:10 Dose: 25 mg Ceftriaxone Sodium 1,000 mg/ (Sodium Chloride) 50 mls @ 200 mls/hr IVPB Q24H [facility] Last Admin: 11/25/16 17:46 Dose: 200 mls/hr Levothyroxine Sodium (Synthroid Tab*) 100 mcg PO DAILY@0600 [facility] Last Admin: 11/26/16 06:01 Dose: 100 mcg Lisinopril (Prinivil Tab*) 10 mg PO DAILY [facility] Last Admin: 11/26/16 09:11 Dose: 10 mg Pto: (Genvoya 1 Tab) 1 tab PO DAILY [facility] Last Admin: 11/26/16 09:11 Dose: 1 tab Omeprazole (Prilosec Cap*) 20 mg PO DAILY@0730 [facility] Last Admin: 11/26/16 06:02 Dose: 20 mg Oxycodone/Acetaminophen (Percocet 5/325 Tab*) 1 tab PO Q4H PRN PRN Reason: PAIN Last Admin: 11/26/16 01:12 Dose: 1 tab Pravastatin Sodium (Pravachol (Nf)) 20 mg PO DAILY [facility] PRN Reason: Protocol Last Admin: 11/26/16 09:10 Dose: 20 mg Vital Signs 11/25/16 11/25/16 11/25/16 18:23 20:42 23:14 Temperature 98.6 F Pulse Rate 76 Respiratory 18 16 Rate Blood Pressure 104/57 (mmHg) O2 Sat by Pulse 98 Oximetry 11/25/16 11/25/16 11/26/16 23:16 23:56 01:12 Temperature 99.1 F Pulse Rate 82 Respiratory 16 16 18 Rate Blood Pressure 129/58 (mmHg) O2 Sat by Pulse 96 Oximetry 11/26/16 11/26/16 11/26/16 03:12 03:48 07:46 Temperature 98.2 F 98.4 F Pulse Rate 80 77 Respiratory 16 16 16 Rate Blood Pressure 125/73 123/71 (mmHg) O2 Sat by Pulse 95 98 Oximetry 11/26/16 11/26/16 08:00 16:18 Temperature 98.9 F Pulse Rate 78 Respiratory 16 Rate Blood Pressure 122/66 (mmHg) O2 Sat by Pulse 97 Oximetry Oxygen Devices in Use Now: None Appearance: NAD Eyes: No Scleral Icterus, PERRLA Ears/Nose/Mouth/Throat: NL Teeth, Lips, Gums, Clear Oropharnyx Neck: NL Appearance and Movements; NL JVP, Trachea Midline Respiratory: Symmetrical Chest Expansion and Respiratory Effort, Clear to Auscultation Cardiovascular: NL Sounds; No Murmurs; No JVD, RRR Abdominal: NL Sounds; No Tenderness; No Distention, No Hepatosplenomegaly Lymphatic: No Cervical Adenopathy Extremities: - - right ankle with swelling, minimal erythema, pain with ROM all directions Neurological: Alert and Oriented x 3 Result Diagrams: 11/25/16 05:05 11/25/16 05:05 Additional Lab and Data: Lab Results 11/23/16 11/23/16 Range/Units 18:01 18:01 WBC 13.9 H (3.5-10.8) 10^3/ul RBC 4.10 (4.0-5.4) 10^6/ul Hgb 11.9 L (12.0-16.0) g/dl Hct 37 (35-47) % MCV 90 (80-97) fL MCH 29 (27-31) pg MCHC 32 (31-36) g/dl RDW 13 (10.5-15) % Plt Count 324 (150-450) 10^3/ul MPV 10 (7.4-10.4) um3 Neut % (Auto) 67.4 (38-83) % Lymph % (Auto) 22.3 L (25-47) % [place] % (Auto) 8.1 (1-9) % Eos % (Auto) 1.6 (0-6) % Baso % (Auto) 0.6 (0-2) % Absolute Neuts (auto) 9.4 H (1.5-7.7) 10^3/ul Absolute Lymphs (auto) 3.1 (1.0-4.8) 10^3/ul Absolute Monos (auto) 1.1 H (0-0.8) 10^3/ul Absolute Eos (auto) 0.2 (0-0.6) 10^3/ul Absolute Basos (auto) 0.1 (0-0.2) 10^3/ul Absolute Nucleated RBC 0.01 10^3/ul Nucleated RBC % 0 ESR 105 H (0-30) mm/Hr Sodium 137 (133-145) mmol/L Potassium 4.8 (3.5-5.0) mmol/L Chloride 100 L (101-111) mmol/L Carbon Dioxide 28 (22-32) mmol/L Anion Gap 9 (2-11) mmol/L BUN 25 H (6-24) mg/dL Creatinine 1.61 H (0.51-0.95) mg/dL Est GFR ( Amer) 43.6 (>60) Est GFR (Non-Af Amer) 33.9 (>60) BUN/Creatinine Ratio 15.5 (8-20) Glucose 121 H (70-100) mg/dL Calcium 10.0 (8.6-10.3) mg/dL Total Bilirubin 1.00 (0.2-1.0) mg/dL AST 21 (13-39) U/L ALT 27 (7-52) U/L Alkaline Phosphatase 71 (34-104) U/L C-Reactive Protein 135.75 H (< 5.00) mg/L Total Protein 8.3 (6.4-8.9) g/dL Albumin 4.1 (3.2-5.2) g/dL Globulin 4.2 H (2-4) g/dL Albumin/Globulin Ratio 1.0 (1-3) Microbiology and Other Data: Microbiology 11/24/16 16:00 Gram Stain - Final Joint Fluid(Synovial) - Ankle Right Body Fluid Culture - Preliminary No Growth Day 1 Skin and Soft Tissue MRSA/MSSA (PCR - Final Mrsa Negative S.aureus Negative 11/24/16 16:00 Anaerobic Culture - Preliminary Body Fluid - Ankle Right No Growth Day 1 Acid Fast Bacilli Smear - Final Assess/Plan/Problems-Billing Assessment: 51 yo F h/o HTN, hypothyroidism, HLD, HIV p/w erythema over and swelling of right ankle concerning for cellulitis with underlying septic arthritis - Patient Problems (1) Septic arthritis Comment: right ankle s/p arthrocentesis with negative gram stain and culture. Pt had eceived 2 doses keflex, 1 dose clinda, and 1 dose CTX prior to procedure Crystals cannot be added to fluid collected Discussed with ID who will consult on case prior to discharge. continue IV abx with CTX (2) Cellulitis Comment: CTX (3) Hypertension Comment: atenolol, HCTZ, lisinopril (4) HIV (human immunodeficiency virus infection) Comment: home medications brought in check CD4 and VL (5) DVT prophylaxis Comment: HSQ
[2016-11-26] MEDS: cefTRIAXone VIAL(*) 1,000 MG in NS 0.9% 50 ML* 50 ML IVPB SCH (20:03)
[2016-11-27] MEDS: Heparin VIAL(*) 5000 UNITS/ML VIAL (FIVE THOUSAND) SUBCUT SCH ×3 (05:49→21:32)
[2016-11-27] MEDS: Levothyroxine TAB* 100 MCG TAB PO SCH (05:49)
[2016-11-27 07:06] LABS: Hematocrit 34 % (35-47); Hemoglobin 11.1 g/dl (12.0-16.0); Mean Corpuscular HGB Conc 32 g/dl (31-36); Mean Corpuscular Hemoglobin 29 pg (27-31); Mean Corpuscular Volume 90 fL (80-97); Mean Platelet Volume 9 um3 (7.4-10.4); Red Cell Distribution Width 13 % (10.5-15); White Blood Count 8.8 10^3/ul (3.5-10.8)
[2016-11-27 07:24] LABS: BUN/Creatinine Ratio 21.1 (8-20); Calcium 9.2 mg/dL (8.6-10.3); EGFR African American 54.3 (>60); EGFR Non-African American 42.2 (>60); Potassium 4.4 mmol/L (3.5-5.0)
[2016-11-27] MEDS: Cholecalciferol TAB* 1000 UNITS PO SCH (08:01)
[2016-11-27] MEDS: GENVOYA PO SCH (08:01)
[2016-11-27] MEDS: Lisinopril TAB* 10 MG PO SCH (08:01)
[2016-11-27] MEDS: Hydrochlorothiazide TAB* 25 MG PO SCH (08:01)
[2016-11-27] MEDS: Omeprazole CAP* 20 MG PO SCH (08:01)
[2016-11-27] MEDS: Atenolol TAB* 50 MG PO SCH (08:01)
[2016-11-27] MEDS: DARUNAVIR 800 MG PO SCH (08:01)
[2016-11-27] MEDS: CMCS:Pravastatin (NF) 20 MG TAB PO SCH (08:01)
--- NOTE | 2016-11-27 09:00 | PN ---
Subjective Date of Service: 11/27/16 Interval History: Pain better, mostly when tries to WB, walks on her R heel. No bowel c/o. Appetite OK. No new c/o. Objective Active Medications: Acetaminophen (Tylenol Tab*) 650 mg PO Q4H PRN PRN Reason: FEVER/PAIN Last Admin: 11/24/16 16:19 Dose: 650 mg Atenolol (Tenormin Tab*) 50 mg PO DAILY [facility] Last Admin: 11/27/16 08:01 Dose: 50 mg Cholecalciferol (Vitamin D Tab*) 2,000 units PO DAILY [facility] Last Admin: 11/27/16 08:01 Dose: 2,000 units Darunavir (Prezista(Nf)) 800 mg PO DAILY [facility] Last Admin: 11/27/16 08:01 Dose: 800 mg Heparin Sodium (Porcine) (Heparin Vial(*)) 5,000 units SUBCUT Q8HR [facility] Last Admin: 11/27/16 05:49 Dose: 5,000 units Hydrochlorothiazide (Hydrodiuril Tab*) 25 mg PO DAILY [facility] Last Admin: 11/27/16 08:01 Dose: 25 mg Ceftriaxone Sodium 1,000 mg/ (Sodium Chloride) 50 mls @ 200 mls/hr IVPB Q24H [facility] Last Admin: 11/26/16 20:03 Dose: 200 mls/hr Levothyroxine Sodium (Synthroid Tab*) 100 mcg PO DAILY@0600 [facility] Last Admin: 11/27/16 05:49 Dose: 100 mcg Lisinopril (Prinivil Tab*) 10 mg PO DAILY [facility] Last Admin: 11/27/16 08:01 Dose: 10 mg Pto: (Genvoya 1 Tab) 1 tab PO DAILY [facility] Last Admin: 11/27/16 08:01 Dose: 1 tab Omeprazole (Prilosec Cap*) 20 mg PO DAILY@0730 [facility] Last Admin: 11/27/16 08:01 Dose: 20 mg Oxycodone/Acetaminophen (Percocet 5/325 Tab*) 1 tab PO Q4H PRN PRN Reason: PAIN Last Admin: 11/26/16 18:30 Dose: 1 tab Pravastatin Sodium (Pravachol (Nf)) 20 mg PO DAILY [facility] PRN Reason: Protocol Last Admin: 11/27/16 08:01 Dose: 20 mg Vital Signs 11/26/16 11/26/16 11/26/16 16:18 18:30 19:51 Temperature 98.9 F 99.0 F Pulse Rate 78 81 Respiratory 18 Rate Blood Pressure 122/66 131/70 (mmHg) O2 Sat by Pulse 97 98 Oximetry 11/26/16 11/26/16 11/26/16 20:00 20:30 23:02 Temperature 98.3 F Pulse Rate 78 Respiratory 16 16 Rate Blood Pressure 105/53 (mmHg) O2 Sat by Pulse 94 Oximetry 11/27/16 11/27/16 07:39 08:00 Temperature 98.0 F Pulse Rate 74 Respiratory 16 16 Rate Blood Pressure 117/63 (mmHg) O2 Sat by Pulse 95 Oximetry Oxygen Devices in Use Now: None Appearance: Alert, partly up in bed. In good spirits. Looks comfortable. Eyes: No Scleral Icterus Extremities: No Clubbing, Cyanosis, - - R ankle mod swelling, mildly tender. Not red or warm. Skin: No Rash or Ulcers, No Nodules or Sclerosis Neurological: Alert and Oriented x 3, NL Sensation Result Diagrams: 11/27/16 06:35 11/27/16 06:35 Additional Lab and Data: Lab Results 11/23/16 11/23/16 Range/Units 18:01 18:01 WBC 13.9 H (3.5-10.8) 10^3/ul RBC 4.10 (4.0-5.4) 10^6/ul Hgb 11.9 L (12.0-16.0) g/dl Hct 37 (35-47) % MCV 90 (80-97) fL MCH 29 (27-31) pg MCHC 32 (31-36) g/dl RDW 13 (10.5-15) % Plt Count 324 (150-450) 10^3/ul MPV 10 (7.4-10.4) um3 Neut % (Auto) 67.4 (38-83) % Lymph % (Auto) 22.3 L (25-47) % [place] % (Auto) 8.1 (1-9) % Eos % (Auto) 1.6 (0-6) % Baso % (Auto) 0.6 (0-2) % Absolute Neuts (auto) 9.4 H (1.5-7.7) 10^3/ul Absolute Lymphs (auto) 3.1 (1.0-4.8) 10^3/ul Absolute Monos (auto) 1.1 H (0-0.8) 10^3/ul Absolute Eos (auto) 0.2 (0-0.6) 10^3/ul Absolute Basos (auto) 0.1 (0-0.2) 10^3/ul Absolute Nucleated RBC 0.01 10^3/ul Nucleated RBC % 0 ESR 105 H (0-30) mm/Hr Sodium 137 (133-145) mmol/L Potassium 4.8 (3.5-5.0) mmol/L Chloride 100 L (101-111) mmol/L Carbon Dioxide 28 (22-32) mmol/L Anion Gap 9 (2-11) mmol/L BUN 25 H (6-24) mg/dL Creatinine 1.61 H (0.51-0.95) mg/dL Est GFR ( Amer) 43.6 (>60) Est GFR (Non-Af Amer) 33.9 (>60) BUN/Creatinine Ratio 15.5 (8-20) Glucose 121 H (70-100) mg/dL Calcium 10.0 (8.6-10.3) mg/dL Total Bilirubin 1.00 (0.2-1.0) mg/dL AST 21 (13-39) U/L ALT 27 (7-52) U/L Alkaline Phosphatase 71 (34-104) U/L C-Reactive Protein 135.75 H (< 5.00) mg/L Total Protein 8.3 (6.4-8.9) g/dL Albumin 4.1 (3.2-5.2) g/dL Globulin 4.2 H (2-4) g/dL Albumin/Globulin Ratio 1.0 (1-3) Microbiology and Other Data: Microbiology 11/24/16 16:00 Gram Stain - Final Joint Fluid(Synovial) - Ankle Right Body Fluid Culture - Preliminary No Growth Day 1 Skin and Soft Tissue MRSA/MSSA (PCR - Final Mrsa Negative S.aureus Negative 11/24/16 16:00 Anaerobic Culture - Preliminary Body Fluid - Ankle Right No Growth Day 1 Acid Fast Bacilli Smear - Final Assess/Plan/Problems-Billing Assessment: 51 yo F h/o HTN, hypothyroidism, HLD, HIV p/w erythema over and swelling of right ankle concerning for cellulitis with underlying septic arthritis - Patient Problems (1) Septic arthritis Current Visit: Yes Status: Acute Comment: right ankle s/p arthrocentesis with negative gram stain and culture. Pt had eceived 2 doses keflex, 1 dose clinda, and 1 dose CTX prior to procedure Crystals cannot be added to fluid collected Awaiting ID consult. continue IV abx with CTX. PICC line requested. (2) HIV (human immunodeficiency virus infection) Current Visit: Yes Status: Acute Comment: home medications brought in Needs fup of CD4 and VL. (3) Hypothyroid Current Visit: Yes Status: Acute Code(s): E03.9 - HYPOTHYROIDISM, UNSPECIFIED SNOMED Code(s): 10623819 Comment: TSH add on requested. Continue levothyroxine.
[2016-11-27 09:38] LABS: TSH (Thyroid Stimulating Horm) 1.78 mcIU/mL (0.34-5.60)
--- NOTE | 2016-11-27 12:04 | PN ---
Progress Note - Progress Note SOAP: Subjective: [Pt feels pain is lessening rates it 4-5/10. Denies CP/SOB/calf pain] Objective: [A and O x 3, NAD, afebrile R ankle, dorsum of foot with mod swelling. No TTP, No erythema. No warmth.NVI. able to DF/PF, wiggle toes. Vital Signs: Temp Pulse Resp BP Pulse Ox 98.0 F 74 16 117/63 95 11/27/16 07:39 11/27/16 07:39 11/27/16 08:00 11/27/16 07:39 11/27/16 07:39 Laboratory Results - last 24 hr 11/27/16 11/27/16 06:35 06:35 WBC 8.8 RBC 3.80 L Hgb 11.1 L Hct 34 L MCV 90 MCH 29 MCHC 32 RDW 13 Plt Count 324 MPV 9 Neut % (Auto) 56.0 Lymph % (Auto) 34.1 [place] % (Auto) 6.0 Eos % (Auto) 2.9 Baso % (Auto) 1.0 Absolute Neuts (auto) 4.9 Absolute Lymphs (auto) 3.0 Absolute Monos (auto) 0.5 Absolute Eos (auto) 0.3 Absolute Basos (auto) 0.1 Absolute Nucleated RBC 0.01 Nucleated RBC % 0.1 Sodium 135 Potassium 4.4 Chloride 101 Carbon Dioxide 24 Anion Gap 10 BUN 28 H Creatinine 1.33 H Est GFR ( Amer) 54.3 Est GFR (Non-Af Amer) 42.2 BUN/Creatinine Ratio 21.1 H Glucose 121 H Calcium 9.2 TSH 1.78 ] Assessment: [51 yo female with R ankle/foot cellulitis. Cultures negative to date.] Plan: [WBAT RLE Con't IV abx Awaiting PICC line placement per medicine F/U with Dr. Goodrich 6-7 days Hope to D/C tomorrow after PICC line placed.]
[2016-11-27] MEDS: oxyCODONE/Acetamin 5/325 MG* TAB PO PRN (14:30)
[2016-11-27] MEDS: cefTRIAXone VIAL(*) 1,000 MG in NS 0.9% 50 ML* 50 ML IVPB SCH (18:05)
[2016-11-28] MEDS: Levothyroxine TAB* 100 MCG TAB PO SCH (05:34)
[2016-11-28] MEDS: Heparin VIAL(*) 5000 UNITS/ML VIAL (FIVE THOUSAND) SUBCUT SCH ×2 (05:34→14:55)
[2016-11-28] MEDS: Cholecalciferol TAB* 1000 UNITS PO SCH (08:13)
[2016-11-28] MEDS: CMCS:Pravastatin (NF) 20 MG TAB PO SCH (08:13)
[2016-11-28] MEDS: Lisinopril TAB* 10 MG PO SCH (08:15)
[2016-11-28] MEDS: DARUNAVIR 800 MG PO SCH (08:15)
[2016-11-28] MEDS: Atenolol TAB* 50 MG PO SCH (08:15)
[2016-11-28] MEDS: Omeprazole CAP* 20 MG PO SCH (08:15)
[2016-11-28] MEDS: GENVOYA PO SCH (08:15)
[2016-11-28] MEDS: Hydrochlorothiazide TAB* 25 MG PO SCH (08:15)
[2016-11-28 08:53] VITALS: BP 133/74
[2016-11-28] MEDS: oxyCODONE/Acetamin 5/325 MG* TAB PO PRN (09:59)
--- NOTE | 2016-11-28 10:15 | DCNOTE ---
"Subjective Date of Service: 11/28/16 Interval History: R foot feels better. No new c/o. Objective Active Medications: Acetaminophen (Tylenol Tab*) 650 mg PO Q4H PRN PRN Reason: FEVER/PAIN Last Admin: 11/24/16 16:19 Dose: 650 mg Atenolol (Tenormin Tab*) 50 mg PO DAILY [facility] Last Admin: 11/28/16 08:15 Dose: 50 mg Cephalexin HCl (Keflex Cap*) 500 mg PO TID [facility] Cholecalciferol (Vitamin D Tab*) 2,000 units PO DAILY [facility] Last Admin: 11/28/16 08:13 Dose: 2,000 units Darunavir (Prezista(Nf)) 800 mg PO DAILY [facility] Last Admin: 11/28/16 08:15 Dose: 800 mg Heparin Sodium (Porcine) (Heparin Vial(*)) 5,000 units SUBCUT Q8HR [facility] Last Admin: 11/28/16 05:34 Dose: 5,000 units Hydrochlorothiazide (Hydrodiuril Tab*) 25 mg PO DAILY [facility] Last Admin: 11/28/16 08:15 Dose: 25 mg Levothyroxine Sodium (Synthroid Tab*) 100 mcg PO DAILY@0600 [facility] Last Admin: 11/28/16 05:34 Dose: 100 mcg Lisinopril (Prinivil Tab*) 10 mg PO DAILY [facility] Last Admin: 11/28/16 08:15 Dose: 10 mg Pto: (Genvoya 1 Tab) 1 tab PO DAILY [facility] Last Admin: 11/28/16 08:15 Dose: 1 tab Omeprazole (Prilosec Cap*) 20 mg PO DAILY@0730 [facility] Last Admin: 11/28/16 08:15 Dose: 20 mg Oxycodone/Acetaminophen (Percocet 5/325 Tab*) 1 tab PO Q4H PRN PRN Reason: PAIN Last Admin: 11/28/16 09:59 Dose: 1 tab Pravastatin Sodium (Pravachol (Nf)) 20 mg PO DAILY [facility] PRN Reason: Protocol Last Admin: 11/28/16 08:13 Dose: 20 mg Vital Signs 11/27/16 11/27/16 11/27/16 11:42 14:30 16:11 Temperature 98.1 F 98.2 F Pulse Rate 72 81 Respiratory 16 16 16 Rate Blood Pressure 120/62 114/64 (mmHg) O2 Sat by Pulse 96 95 Oximetry 11/27/16 11/27/16 11/27/16 16:30 20:00 23:36 Temperature 97.9 F Pulse Rate 72 Respiratory 16 18 16 Rate Blood Pressure 111/60 (mmHg) O2 Sat by Pulse 95 Oximetry 11/28/16 11/28/16 11/28/16 08:00 08:02 09:59 Temperature 98.0 F Pulse Rate 84 Respiratory 18 17 20 Rate Blood Pressure 133/74 (mmHg) O2 Sat by Pulse 97 Oximetry Oxygen Devices in Use Now: None Appearance: Alert, sitting up in bed. In good spirits. Looks comfortable. Extremities: No Edema, No Clubbing, Cyanosis, - - R ankle minimally tender but looks and feels nl. Skin: No Rash or Ulcers, No Nodules or Sclerosis, - Neurological: Alert and Oriented x 3, NL Sensation Result Diagrams: 11/27/16 06:35 11/27/16 06:35 Additional Lab and Data: Lab Results 11/23/16 11/23/16 Range/Units 18:01 18:01 WBC 13.9 H (3.5-10.8) 10^3/ul RBC 4.10 (4.0-5.4) 10^6/ul Hgb 11.9 L (12.0-16.0) g/dl Hct 37 (35-47) % MCV 90 (80-97) fL MCH 29 (27-31) pg MCHC 32 (31-36) g/dl RDW 13 (10.5-15) % Plt Count 324 (150-450) 10^3/ul MPV 10 (7.4-10.4) um3 Neut % (Auto) 67.4 (38-83) % Lymph % (Auto) 22.3 L (25-47) % [place] % (Auto) 8.1 (1-9) % Eos % (Auto) 1.6 (0-6) % Baso % (Auto) 0.6 (0-2) % Absolute Neuts (auto) 9.4 H (1.5-7.7) 10^3/ul Absolute Lymphs (auto) 3.1 (1.0-4.8) 10^3/ul Absolute Monos (auto) 1.1 H (0-0.8) 10^3/ul Absolute Eos (auto) 0.2 (0-0.6) 10^3/ul Absolute Basos (auto) 0.1 (0-0.2) 10^3/ul Absolute Nucleated RBC 0.01 10^3/ul Nucleated RBC % 0 ESR 105 H (0-30) mm/Hr Sodium 137 (133-145) mmol/L Potassium 4.8 (3.5-5.0) mmol/L Chloride 100 L (101-111) mmol/L Carbon Dioxide 28 (22-32) mmol/L Anion Gap 9 (2-11) mmol/L BUN 25 H (6-24) mg/dL Creatinine 1.61 H (0.51-0.95) mg/dL Est GFR ( Amer) 43.6 (>60) Est GFR (Non-Af Amer) 33.9 (>60) BUN/Creatinine Ratio 15.5 (8-20) Glucose 121 H (70-100) mg/dL Calcium 10.0 (8.6-10.3) mg/dL Total Bilirubin 1.00 (0.2-1.0) mg/dL AST 21 (13-39) U/L ALT 27 (7-52) U/L Alkaline Phosphatase 71 (34-104) U/L C-Reactive Protein 135.75 H (< 5.00) mg/L Total Protein 8.3 (6.4-8.9) g/dL Albumin 4.1 (3.2-5.2) g/dL Globulin 4.2 H (2-4) g/dL Albumin/Globulin Ratio 1.0 (1-3) Microbiology and Other Data: Microbiology 11/24/16 16:00 Gram Stain - Final Joint Fluid(Synovial) - Ankle Right Body Fluid Culture - Preliminary No Growth Day 1 Skin and Soft Tissue MRSA/MSSA (PCR - Final Mrsa Negative S.aureus Negative 11/24/16 16:00 Anaerobic Culture - Preliminary Body Fluid - Ankle Right No Growth Day 1 Acid Fast Bacilli Smear - Final Assess/Plan/Problems-Billing Assessment: 51 yo F h/o HTN, hypothyroidism, HLD, HIV p/w erythema over and swelling of right ankle concerning for cellulitis with underlying septic arthritis - Patient Problems (1) Septic arthritis Current Visit: Yes Status: Acute Comment: right ankle s/p arthrocentesis with negative gram stain and culture. Pt had eceived 2 doses keflex, 1 dose clinda, and 1 dose CTX prior to procedure Crystals cannot be added to fluid collected Discussed with Dr. Jennings. Two week po cephalexin. He will fup. (2) HIV (human immunodeficiency virus infection) Current Visit: Yes Status: Acute Comment: home medications brought in Needs fup of CD4 and VL. (3) Hypothyroid Current Visit: Yes Status: Acute Code(s): E03.9 - HYPOTHYROIDISM, UNSPECIFIED SNOMED Code(s): 00117328 Comment: TSH add on wnl 11/27. Continue levothyroxine. Status and Disposition: Discharge now. Search Terms: carlos resendizgaston, 1965 Search Date: 11/28/2016 10:11:25 AM The Drug Utilization Report below displays all of the controlled substance prescriptions, if any, that your patient has filled in the last twelve months. The information displayed on this report is compiled from pharmacy submissions to the Department, and accurately reflects the information as submitted by the pharmacies. This report was requested by: Dakotah Parikh | Reference #: [id number] There are no results for the search terms that you entered."
--- NOTE | 2016-11-28 10:19 | PN ---
Progress Note - Progress Note Note: Time spent on discharge 45 minutes.
[2016-11-28] MEDS ORDERED: Cephalexin CAP* 500 MG ONE (10:38)
[2016-11-28] MEDS: Cephalexin CAP* 500 MG PO SCH ×2 (10:39→14:52)
--- NOTE | 2016-11-28 11:03 | PN ---
Progress Note - Progress Note Note: Time spent on discharge 50 minutes.
--- NOTE | 2016-11-28 14:43 | CONS ---
CONSULTATION REPORT: DATE OF CONSULTATION: 11/28/16 REQUESTING PHYSICIAN: Dr. Parikh. CONSULTING SERVICE: Infectious Disease. REASON FOR CONSULTATION: Right ankle infection. IMPRESSION: 1. Right ankle cellulitis, resolved. She does have mild warmth in the ankle joint in the setting of right tibia and fibula fixation hardware. She is bearing weight now with minimal pain. She does have pain with ankle inversion. An MRI shows joint effusion in the ankle. Aspiration of a couple of cc of serosanguineous fluid showed no organisms and a culture was negative after about 12 hours of antibiotics. There was no suppurative tenosynovitis on the MRI. She has had rapid improvement in the soft tissue component of her infection and in her ability to bear weights. I discussed with her that there is likely a deeper seated infection present; either a septic ankle joint, which is less likely, or chronic osteomyelitis and hardware infection. We discussed the options that include surgery for further evaluation and hardware removal, followed by IV antibiotics for 6 to 8 weeks. There is a chance that this would be unnecessary if there is not a deeper infection and so she would have an unnecessary surgery in that case, and she wants to avoid surgery at all costs. There is not another diagnostic test to help sort this out. I think that just giving her IV antibiotics does not make sense if we are concerned about deeper infection as it would likely relapse given the presence of hardware. The alternative is that there is some soft tissue infection, which has led to sympathetic effusion and that antibiotic pills would be sufficient and that would be the best test if this is just a more limited infection. If her symptoms return after stopping antibiotics that would be another piece of confirmatory evidence of a deeper infection that would necessitate removal of hardware, debridement, and long course of IV antibiotics. She is aware that antibiotics pills or even IV antibiotics alone would not cure the infection if it was involving the hardware and that she will require another hospitalization for removal of hardware. She is quite clear that she does not want to have surgery at this point and therefore, we will plan on antibiotic pills. I did express to her that I think there is a very good chance that without surgery she is going to have return of her symptoms requiring another hospitalization and surgery. She accepts that, but again wants to try avoiding surgery at all cost, mainly it appears due to unpleasant and negative experience when she had her original ankle fixation surgery years ago. 2. Human immunodeficiency virus has been well controlled. 3. Right ankle fracture, status post open reduction and internal fixation in 2010. 4. Hypertension. RECOMMENDATION: Keflex 500 mg by mouth 3 times a day. I will have my office set up an appointment to follow up with her this week. I told her that if any worsening pain, return of fever or decreased range of motion or worsening pain with weightbearing, she needs to come back to the ER and we will start back from square one. She is in agreement. HISTORY OF PRESENT ILLNESS: This is a 51-year-old woman with well-controlled HIV, admitted with right ankle pain. She has had this right ankle pain off and on over the last year or so, usually the ankle gets swollen and is painful with weightbearing. She takes antiinflammatories for 2 or 3 days and it resolves. At this time, the swelling and pain got worse and worse, she developed fever and chills. She came to the hospital on 11/23/16. Her CRP was 135. She was started on vancomycin and ceftriaxone. She had an MRI done that showed soft tissue swelling, effusion of the tibiotalar joint, no gross evidence of osteomyelitis. She was seen by Dr. Goodrich, who aspirated the joint, a couple of cc of serosanguineous fluid were obtained. A PCR was done on the fluid that showed no Staph aureus. The culture was negative. She had been on antibiotics for about 12 hours by that time. Blood cultures on admission were negative as well. While here, she has had rapid improvement in redness, swelling, and pain in the ankle, she is bearing weight now. She has been using a walker with physical therapy. She is anxious to go home today. Her fevers and chills are resolved. PAST MEDICAL HISTORY: 1. HIV, diagnosed in 2000. 2. Hypertension. 3. Hypothyroidism. 4. Hyperlipidemia. 5. Gastroesophageal reflux disease. 6. Status post open reduction and internal fixation, right tibia and fibula. HOME MEDICATIONS: 1. Genvoya. 2. Darunavir. 3. Atenolol. 4. Ceftriaxone 2 g a day. 5. Heparin subcutaneous injection. 6. Hydrochlorothiazide. 7. Levothyroxine. 8. Lisinopril. 9. Omeprazole. 10. Pravastatin. ALLERGIES: No known drug allergies. SOCIAL HISTORY: She lives in [place]. No travels or sick contacts. She is from [facility] originally. FAMILY HISTORY: Unknown, she is adopted. REVIEW OF SYSTEMS: Negative, except as noted above, to a full review of systems. PHYSICAL EXAMINATION: Vital Signs: Temperature 36.7, heart rate 80, respiratory rate 17, blood pressure 130/70, O2 sat 97% on room air. In general , she is awake, not in distress. HEENT: There is no conjunctival hemorrhage. Oropharynx without lesions. Neck: Supple, without nuchal rigidity. Lymph Nodes: There is no cervical, supraclavicular, inguinal, axillary or epitrochlear lymphadenopathy. Lungs are clear to auscultation bilaterally. Heart: Regular rate and rhythm, without murmurs, rubs or gallops. Abdomen: Soft, nontender, nondistended, without hepatosplenomegaly. Skin: There is no rash or splinter hemorrhages. Musculoskeletal: There is no spinal tenderness to palpation. Right ankle, there is trace edema and warmth. No erythema. There is no tenderness to palpation. There is pain with inversion, not flexion and extension. There is no other joint synovitis. Neurologic: She is awake, oriented x3. Follows all commands. DIAGNOSTIC STUDIES/LABORATORY DATA: Creatinine 1.3. White blood cell count 8, hemoglobin 11, platelets 324. Please see impressions and recommendation outlined above, which I have discussed with Dr. Parikh. Thank you for asking me to see Ms. Vital in consultation. [id number]/[facility] #: [id number] [facility]
--- NOTE | 2016-11-28 22:17 | DS ---
CC: Dr. Gunter; Dr. Jennings * DISCHARGE SUMMARY: DATE OF ADMISSION: 11/24/16 DATE OF DISCHARGE: 11/28/16 HOSPITAL COURSE: This 51-year-old woman presented with a one-day history of her right ankle being swollen and red. She woke up with it. She was still able to walk on it. As it did not get better, she came to the emergency room. Her CRP was over a 100. She had a sed rate of over 100. On admission, the right ankle was red, warm and tender to the touch and visibly swollen. MRI showed a joint effusion. I note she has hardware there from repair of a traumatic fracture several years ago. She received intravenous ceftriaxone. Dr. Goodrich came and did an aspiration. She got 4 mL of fluid that was serosanguineous. She said it was not purulent. The fluid culture was negative as of this date. PCR for Staph aureus and MRSA were both negative. Two blood cultures were also drawn and were negative as of this date. She was afebrile throughout her hospital stay. The CRP went from 135 on November 23 to 118 on November 25. The sed rate was not competed. The patient was seen in consultation by Dr. Jennings. She is being discharged on cephalexin 500 mg t.i.d. for 14 days. She will have a PT eval before discharge to make sure she is walking safely with the assistive device that is recommended. She was given 15 tablets of oxycodone/acetaminophen for pain control at home. DISCHARGE DIAGNOSES: 1. Possible septic arthritis. 2. HIV infection. 3. Hypothyroidism. DISCHARGE MEDICATIONS: 1. Cephalexin 500 mg t.i.d. for 14 days. 2. Oxycodone/acetaminophen 5/325 mg 1 every 4 hours p.r.n. 3. Levothyroxine 100 mcg daily. 4. Lisinopril 10 mg daily. 5. Atenolol 50 mg daily. 6. Vitamin D 2000 units daily. 7. Omeprazole 20 mg daily. 8. Pravastatin 1 tablet daily. 9. Calcium 250 mg daily. 10. Genvoya 1 tablet daily. 11. Darunavir 1 tablet daily. 12. Lisinopril 10 mg daily. 13. Hydrochlorothiazide 1 tablet daily. [id number]/[facility] #: [id number] [facility]
== END 2016-11-28 16:45 | disposition home or self-care (01) | DRG 894 ==
LOC: ED 17:08 → MED 11-24 03:39 → OBSVTOIN 11-24 09:30
PROVIDERS: ADMIT Internal Medicine; ATTEND Internal Medicine
PROC: 0S9F3ZX Drainage of Right Ankle Joint, Percutaneous Approach, Diagnostic (ICD-10-PCS; principal; 2016-11-24)
DX: M00.9 Pyogenic arthritis, unspecified (principal); B20 Human immunodeficiency virus [HIV] disease; I10 Essential (primary) hypertension; L03.115 Cellulitis of right lower limb; E03.9 Hypothyroidism, unspecified; E78.5 Hyperlipidemia, unspecified; K21.9 Gastro-esophageal reflux disease without esophagitis; Z79.899 Other long term (current) drug therapy; Z87.891 Personal history of nicotine dependence; Z87.81 Personal history of (healed) traumatic fracture
CPT/HCPCS: 36415; 80048; 80053; 84443; 85025; 85652; 86140; 87040; 87070; 87073; 87102; 87116; 87205; 87206; 87640; 87641; A9270-GY; J0690; J0696; J1644; J3370

== ENCOUNTER 2017-01-16 06:24 | Day surgery (SDC) | payer OTHER ==
--- NOTE | 2017-01-10 18:06 | HP ---
PREOPERATIVE HISTORY AND PHYSICAL: DATE OF ADMISSION/SURGERY: 01/16/17 DATE OF OFFICE VISIT: 12/27/16 ATTENDING PHYSICIAN/SURGEON: Dr. Ashutosh Mcfarlane * (DICTATED BY JM KEE) PROCEDURE: Right ankle hardware removal. CHIEF COMPLAINT: Right ankle pain. HISTORY OF PRESENT ILLNESS: Brisa is a 51-year-old female, who complains of a 1 - month history of right ankle pain. She has a history of a right ankle fracture, November 2010. Then, she had ORIF of her right ankle at that time. She gets occasional inflammation where she takes ibuprofen, elevates it, ices it, and it usually gets better. However, a month ago, she tried this regimen which did not help. The ankle became red and swollen, hot to the touch. She did not have a recent injury. She states that she was hospitalized for 4 days and on IV antibiotics. She has been followed by Dr. Jennings. She is not currently on antibiotics but soon after she went off the antibiotics, the ankle started to swell up on her again. She was referred to Dr. Mcfarlane for possible hardware removal. This was discussed with the patient by Dr. Mcfarlane and the patient would like to proceed with right ankle hardware removal. PAST MEDICAL HISTORY: 1. Hypertension. 2. Hyperlipidemia. 3. Hypothyroidism. 4. HIV. 5. Depression and anxiety. PAST SURGICAL HISTORY: 1. Right ankle ORIF. 2. Tubal ligation. 3. Cervix ablation. MEDICATIONS: 1. Atenolol. 2. Calcium citrate. 3. Clindamycin. 4. Genvoya. 5. Hydrochlorothiazide. 6. Levothyroxine sodium. 7. Lisinopril. 8. Loratadine. 9. Omeprazole. 10. Oxycodone/acetaminophen. 11. Pravastatin. 12. Prezista. 13. Vitamin D 2000 units. ALLERGIES: No known drug allergies. FAMILY HISTORY: Unknown. SOCIAL HISTORY: Brisa is a 51-year-old disabled female. She quit smoking 30 years ago, she rarely drinks alcohol, and denies recreational drug use. REVIEW OF SYSTEMS: General: Negative for fevers, chills, night sweats. No known anesthesia problems. HEENT: Negative for headaches, lightheadedness, or syncopal episodes. Integumentary: Negative for abrasions, lesions, or open wounds. Cardiothoracic: Positive for hypertension, negative for chest pain, palpitations, or edema. Pulmonary: Positive for chronic cough, negative for shortness of breath with exertion, or COPD. GI: Negative for nausea, vomiting , diarrhea, constipation, or GERD. : Negative for nocturia, urinary frequency, urgency, history of UTI, or kidney problems. Musculoskeletal: Positive for current complaint. Positive for peripheral nerve compression in the back and positive for history of fractures. Neuro: Negative for paresthesias, numbness, history of seizure, stroke, or epilepsy. Endocrine: Positive for thyroid issues, negative for diabetes. Hematologic: Negative for easy bruising, anemia, excessive bleeding, history of DVT. ID: Positive for HIV. Negative for MRSA and hep C. PHYSICAL EXAMINATION GENERAL: Well-developed, well-nourished, 51-year-old female in no acute distress. Alert and oriented x3, appropriate mood and affect. VITAL SIGNS: Height 65, weight 255 pounds, pulse 72, blood pressure is 110/64, respirations 14, temperature is 97.4, BMI of 42.4. HEENT: Normocephalic, atraumatic. NECK: Supple with no palpable lymph nodes. PULMONARY: Lungs clear to auscultation bilaterally. No wheezes, rales, or rhonchi. CARDIO: Regular rate and rhythm. S1, S2. No murmurs, rubs or gallops. No edema. ABDOMEN: Positive bowel sounds throughout. Soft, nontender. NEUROLOGICAL: Alert and oriented x3. Cranial nerves II through XII grossly intact. Sensation is intact to light touch. EXTREMITIES: Right lower extremity, there is moderate swelling with 1+ edema, there is no erythema or ecchymosis. Skin is intact. There are no open wounds or abrasions. She has full painless range of motion. There is tenderness over the hardware both laterally and medially. There are no signs of infection. Sensation is intact to light touch. Dorsalis pedis pulses are 2+. DIAGNOSTIC STUDIES: Right ankle MRI was done on 11/24/16, which was reviewed by Dr. Mcfarlane and showed soft tissue swelling. There was an effusion within the tibiotalar joint. There is no gross evidence of osteomyelitis. IMPRESSION: Right ankle painful retained hardware. PLAN: The patient is scheduled to undergo a right ankle hardware removal on 12/[address] Mcfarlane. She will return to the office 10 to 14 days postop for followup and suture removal. A prescription for oxycodone was prescribed to the patient's pharmacy for postoperative pain management. JM KEE [id number]/[facility] #: [id number] JAMES
[~2017-01-16 06:24] MED LIST: Buffered Lidocaine 0.9% SYRIN* 5 ML/SYR SYRINGE INTRADERM ONE; Famotidine IV* 10 MG/ML 2 ML (20 mg) IV ONE; Morphine INJ* 2 MG/ML 1 ML SYRINGE IV PRN; PROCHLORPERAZINE INJ 5 MG/ML 2 ML VIAL IV PRN; fentaNYL* 50 MCG/ML 2 ML VIAL (100 MCG VIAL) IV PRN; oxyCODONE/Acetamin 5/325 MG* TAB PO PRN
[2017-01-16] MEDS ORDERED: ceFAZolin 2 GM PREMIX(*) 2 GM/50 ML BAG IVPB ONE (06:37)
[2017-01-16] MEDS ORDERED: Famotidine IV* 10 MG/ML 2 ML (20 mg) ONE (06:37)
[2017-01-16] MEDS ORDERED: Buffered Lidocaine 0.9% SYRIN* 5 ML/SYR SYRINGE ONE (06:38)
[2017-01-16] MEDS ORDERED: KETAMINE HCL* 50 MG/ML 10 ML VIAL ONE (08:02)
[2017-01-16] MEDS ORDERED: fentaNYL* 50 MCG/ML 2 ML VIAL (100 MCG VIAL) ONE (08:02)
[2017-01-16] MEDS ORDERED: Midazolam* 1 MG/ML 5 ML VIAL (5 MG) ONE (08:02)
[2017-01-16] MEDS ORDERED: Lidocaine 2% PF* 10 ML AMP ONE (08:12)
[2017-01-16] MEDS ORDERED: Metoprolol Tartrate IV* 1 MG/ML 5 ML VIAL ONE (09:01)
[2017-01-16] MEDS ORDERED: Lidocaine 2% PF * 5 ML VIAL ONE (09:01)
[2017-01-16] MEDS ORDERED: Propofol* 10 MG/ML 20 ML BTL IV PUSH ONE ×2 (09:01→09:02)
[2017-01-16] MEDS ORDERED: Dexamethasone IV* 4 MG/ML 1 ML (4 MG) ONE (09:02)
[2017-01-16] MEDS ORDERED: Ketorolac INJ* 30 MG/ML 1 ML VIAL ONE (09:02)
[2017-01-16] MEDS ORDERED: Ondansetron INJ* 2 MG/ML VIAL ONE (09:02)
[2017-01-16] MEDS ORDERED: oxyCODONE TAB* 5 MG TAB ONE (09:51)
[2017-01-16 11:52] VITALS: BP 124/79
--- NOTE | 2017-01-17 01:18 | OP ---
DATE OF OPERATION: 01/16/17 [facility] DATE OF : 67 ATTENDING SURGEON: Ashutosh Mcfarlane MD STEEL BURNER: JM Gil ANESTHESIOLOGIST: Giacomo Fleming MD ANESTHESIA: MAC PRE-OP DIAGNOSIS: Painful hardware, right bimalleolar ankle fracture. POST-OP DIAGNOSIS: Painful hardware, right bimalleolar ankle fracture. OPERATIVE PROCEDURE: Removal of hardware, right bimalleolar ankle fracture. DESCRIPTION OF PROCEDURE: The patient was taken to the operating room where a longitudinal incision was made over the distal fibula. We incised around the plate and the two lag screws which were all removed then with a small fragment screw lumber driver. There was what appeared to be some gouty material, in other words white cheesy material along the borders of the plate. We did sent a synovial sample to pathology. Before closing, we scraped this area with a curette and thoroughly irrigated the soft tissues closing with Vicryl and nylon for the skin. We then made a longitudinal incision medially through the previous incision over the medial malleolus. The 4.5 mm cannulated screws were identified and removed with appropriate screw lumber driver. We closed the subcu tissue with 2-0 Vicryl and nylon for the skin and a compression dressing applied. [id number]/[facility] #: [id number] [facility]
== END 2017-01-16 12:27 | disposition home or self-care (01) ==
LOC: OR 06:24
PROVIDERS: ATTEND Orthopaedic Surgery
DX: T84.84XA Pain due to internal orthopedic prosthetic devices, implants and grafts, initial encounter (principal); Y83.1 Surgical operation with implant of artificial internal device as the cause of abnormal reaction of the patient, or of later complication, without mention of misadventure at the time of the procedure; I10 Essential (primary) hypertension; E78.5 Hyperlipidemia, unspecified; E03.9 Hypothyroidism, unspecified; Z87.891 Personal history of nicotine dependence; S82.841S Displaced bimalleolar fracture of right lower leg, sequela
CPT/HCPCS: 88300; 88304; A9270-GY; J0690; J1100; J1885; J2001; J2250; J2405; J2704; J3010